=== PATIENT | male | born 1980 | race Asian ===

== ENCOUNTER 2016-05-21 11:16 | Emergency (ER) | payer OTHER ==
[2016-05-21 11:23] VITALS: BP 115/68; PULSE 73; RESP 16; TEMP 98.1; O2SAT 96
--- NOTE | 2016-05-21 12:21 | EDPHY ---
H & P Time Seen by Provider: 05/21/16 11:56 HPI/ROS: CHIEF COMPLAINT: anxiety HISTORY OF PRESENT ILLNESS: Patient is a 35-year-old male who presents emergency department with anxiety. Patient's thinks his symptoms all started in 08/2015 when he switched jobs from [employer]. Starting in February he has been stressed about switching jobs. He has been unable to sleep. He has had intermittent episodes of a feeling of anxiety and palpitations. No chest pain or shortness of breath. No vomiting. Patient denies any suicidal ideation. REVIEW OF SYSTEMS: My complete review of systems is negative except as mentioned in the HPI. Past Medical/Surgical History: Anxiety, depression Smoking Status: Never smoked Physical Exam: Vitals noted GENERAL: Well-appearing, in no acute distress, alert. HEENT: Eyes normal to inspection, normal pharynx, no signs of dehydration. NECK: No thyromegaly, no lymphadenopathy, supple. RESPIRATORY: Clear to auscultation bilaterally, no rales, rhonchi or wheezing. CVS: Regular rate and rhythm, no rubs, murmurs, or gallops. ABDOMEN: Soft, nontender, nondistended, no organomegaly. BACK: Normal to inspection, no CVA tenderness. SKIN: Normal color, no rash, warm, dry. No pallor. EXTREMITIES: No pedal edema, no calf tenderness, no Homans sign or cords, no joint swelling. NEURO/PSYCH: Alert and oriented x3, normal mood and affect, normal motor sensory exam. Constitutional: Initial Vital Signs Temperature (C) 36.7 C 05/21/16 11:20 Heart Rate 73 05/21/16 11:20 Respiratory Rate 16 05/21/16 11:20 Blood Pressure 115/68 05/21/16 11:20 O2 Sat (%) 96 05/21/16 11:20 O2 Delivery Mode Room Air Allergies/Adverse Reactions: No Known Allergies Allergy (Unverified 05/21/16 11:23) Home Medications: Medication Instructions Recorded ALPRAZolam [Xanax 0.5 MG (*)] 0.5 mg PO TID PRN #13 tab 05/21/16 Medical Decision Making ED Course/Re-evaluation: In the emergency department I discussed possible causes with the patient. Case management spoke with the patient given referrals to pyschiatry. He has been seen by therapist will continue to see a therapist. He has an appointment scheduled with Dr. Oconnell for primary care Differential Diagnosis: The patient presents emergency department with feelings of anxiety. I doubt thyrotoxicosis. This does not appear to be dysrhythmia. I doubt ACS. Unlikely patient has electrolyte abnormality. I doubt malignancy or mass. Did consider anxiety and depression. The patient will follow up with his primary care physician as well as Psychiatry. Departure - Departure Disposition: Home, Routine, Self-Care Clinical Impression: Anxiety Condition: Good Instructions: Anxiety (ED) Additional Instructions: Return with worsening symptoms. You need close follow-up with her primary care physician. Referrals: Angel Luis Bess DO [Primary Care Provider] - 1 day without fail Prescriptions: ALPRAZolam [Xanax 0.5 MG (*)] 0.5 mg PO TID PRN #13 tab PRN Reason: Anxiety
== END 2016-05-21 12:43 | disposition home or self-care (01) ==
DX: F41.9 Anxiety disorder, unspecified (principal)